=== PATIENT | male | born 1980 ===

== ENCOUNTER 2020-08-29 01:23 | Emergency (ER) | payer MEDICAID ==
[~2020-08-29] VITALS: Ht 182.9 cm; Wt 109.1 kg
[2020-08-29 01:24] VITALS: BP 0/0
--- NOTE | 2020-08-29 02:07 | NUR ---
see CODE blue hard copy.
[2020-08-29 02:08] LABS: URINE AMPHETAMINE SCREEN NEGATIVE (Neg); URINE BARBITUATE SCREEN NEGATIVE (Neg); URINE BENZODIAZEPINES SCREEN NEGATIVE (Neg); URINE CANNABINOID SCREEN POSITIVE (Neg); URINE COCAINE SCREEN NEGATIVE (Neg); URINE METHADONE SCREEN NEGATIVE (Neg); URINE OPIATE SCREEN NEGATIVE (Neg); URINE PHENCYCLIDINE SCREEN NEGATIVE (Neg)
--- NOTE | 2020-08-29 03:07 | NUR ---
electronics production supervisor contacted and due to the lack of medical history/medications the electronics production supervisor advised that the patient of unantural causes and is a electronics production supervisor's case.
--- NOTE | 2020-08-29 03:10 | NUR ---
donor network contacted and is requesting to use patient as a donor.
--- NOTE | 2020-08-29 03:31 | NUR ---
patient's belongings include a wallet with no cashand a managed security sales consultant.belongings are sent with plant maintenance supervisor.
[2020-08-29] MEDS ORDERED: epiNEPHrine 0.1mg/ml 10ml syringe ONE (08:00)
[2020-08-29] MEDS ORDERED: sodium bicarbonate (8.4%) 1 mEq/ml syringe ONE (08:00)
== END 2020-08-29 03:46 | disposition expired ==
LOC: ER 01:24 → EDBD 01:24 → ER 03:46
DX: I46.9 Cardiac arrest, cause unspecified (principal); F11.90 Opioid use, unspecified, uncomplicated
CPT/HCPCS: 31500; 80305; 92950; 99285; J0171